=== PATIENT | male | born 1985 | race Caucasian/White ===

== ENCOUNTER 2017-06-17 00:42 | Emergency (ER) | payer BC ==
[2017-06-17] MEDS ORDERED: LIDOCAINE 2% VISCOUS SOLN 20 ML UDCUP PO ONE (02:26)
--- NOTE | 2017-06-17 02:32 | ER Document Report ---
HPI - HPI Pain Level: 5 Notes: Patient is a 31-year-old male with no significant past medical history presents the ED complaining of right upper molar pain to #2 over the last couple days. Patient states that he has noticed a little bit of swelling in the area and the pain is described as sharp that radiates around into his right jaw. He has been using ibuprofen with minimal relief. Patient states that he is here visiting and they are looking into calling a dentist tomorrow morning. Patient denies any drug allergies, smoking, or illicit drug use. Patient states that he has not had any difficulties eating or drinking mechanically. Denies any headache, fever, neck pain/stiffness, URI, sore throat, chest pain, palpitations , syncope, cough, shortness of breath, wheeze, dyspnea, abdominal pain, nausea/ vomiting/diarrhea, dysuria, hematuria, or rash. - ROS Notes: REVIEW OF SYSTEMS: CONSTITUTIONAL : Denies fever, chills, or sweats. Denies recent illness. EENT: see hpi. No eye complaints. CARDIOVASCULAR: Denies chest pain. Denies palpitations or racing or irregular heart beat. Denies ankle edema. RESPIRATORY: Denies cough, cold, or chest congestion. Denies shortness of breath, difficulty breathing, or wheezing. GASTROINTESTINAL: Denies abdominal pain or distention. Denies nausea, vomiting , or diarrhea. Denies blood in vomitus, stools, or per rectum. Denies black, tarry stools. Denies constipation. GENITOURINARY: Denies difficulty urinating, painful urination, burning, frequency, blood in urine, or discharge. MUSCULOSKELETAL: Denies back or neck pain or stiffness. Denies joint pain or swelling. SKIN: Denies rash, lesions or sores. NEUROLOGICAL: Denies confusion or altered mental status. Denies passing out or loss of consciousness. Denies dizziness or lightheadedness. Denies headache. Denies weakness or paralysis or loss of use of either side. Denies problems with gait or speech. Denies sensory loss, numbness, or tingling. ALL OTHER SYSTEMS REVIEWED AND NEGATIVE. Dictation was performed using hoozin voice recognition software - DERM Skin Color: Normal, [place] Past Medical History - Social History Smoking Status: Never Smoker Family History: Reviewed & Not Pertinent Renal/ Medical History: Denies: Hx Peritoneal Dialysis Vertical Provider Document - CONSTITUTIONAL Agree With Documented VS: Yes Notes: PHYSICAL EXAMINATION: GENERAL: Well-appearing, well-nourished and in no acute distress. HEAD: Atraumatic, normocephalic. EYES: Pupils equal round and reactive to light, extraocular movements intact, sclera anicteric, conjunctiva are normal. ENT: EAC clear b/l. TM's intact b/l without erythema, fluid, or perforation. Nares patent and without discharge. oropharynx clear without exudates. No tonsilar hypertrophy or erythema. Moist mucous membranes. No sinus tenderness. Uvula midline. No palatine shift. No tongue protrusion. No facial swelling. Mouth: poor dentition throughout. + mild gingivitis to #2 without obvious abscess or discharge. + tenderness. No sign of Jamie's. NECK: Normal range of motion, supple without lymphadenopathy. No rigidity/ meningismus. LUNGS: Breath sounds clear to auscultation bilaterally and equal. No wheezes rales or rhonchi. HEART: Regular rate and rhythm without murmurs, rubs, gallops. NEUROLOGICAL: Cranial nerves grossly intact. Normal speech, normal gait. Normal sensory, motor exams PSYCH: Normal mood, normal affect. SKIN: Warm, Dry, normal turgor, no rashes or lesions noted. - INFECTION CONTROL TRAVEL OUTSIDE OF THE [place] IN LAST 30 DAYS: No - RESPIRATORY O2 Sat by Pulse Oximetry: 98 Course - Re-evaluation Re-evalutation: 06/17/17 02:30 Patient is an afebrile, well-hydrated, 31-year-old male who presents the ED with right upper molar dental pain to #2, suspect infection versus nerve root etiology. Vitals are stable. PE otherwise unremarkable at this time. I will cover him with clindamycin 3 times daily 10 days along with viscous lidocaine to use as directed. Low suspicion for any meningitis, sepsis, peritonsillar/ pharyngeal abscess, respiratory compromise, Jamie's, temporal arteritis, or other emergent systemic condition at this time. Patient is aware this condition can change from initial presentation and he needs to monitor symptoms closely. Conservative measures otherwise for symptoms. Call to schedule an appointment with a dentist for further evaluation and management. Recheck with your PCM this week as well. Return to the ED with any worsening/concerning symptoms otherwise as reviewed in discharge. Patient is in agreement. - Vital Signs Vital signs: Temp Pulse Resp BP Pulse Ox 97.4 F 62 16 143/94 H 98 06/17/17 00:58 06/17/17 00:58 06/17/17 00:58 06/17/17 00:58 06/17/17 00:58 Discharge - Discharge Clinical Impression: Toothache Condition: Stable Disposition: HOME, SELF-CARE Instructions: Toothache ([facility]), Clindamycin ([facility]), Dentist, Dental Infection or Abscess ([facility]) Additional Instructions: [place] and floss twice daily Maintain fluid intake Take antibiotics as directed Mouthwash, salt water gargles, peroxide rinse as needed Tylenol/ibuprofen as needed Recheck with PCM this week Call today/tomorrow and schedule an appointment with your dentist for further evaluation Return to the ED with any worsening symptoms and/or development of fever, headache, facial swelling, swelling of lips/tongue/throat, trouble swallowing, drooling, hoarseness, neck pain/stiffness, chest pain, palpitations, syncope, shortness of breath, trouble breathing, abdominal pain, n/v/d, numbness/tingling , or other worsening symptoms that are concerning to you. Prescriptions: Clindamycin HCl [Cleocin 300 mg Capsule] 300 mg PO TID #30 capsule Forms: Elevated Blood Pressure Referrals: DENTISTRY [Provider Group] - Follow up as needed
[2017-06-17 02:57] VITALS: BP 142/98
== END 2017-06-17 02:56 | disposition home or self-care (01) ==
LOC: ER 00:42
DX: K08.89 Other specified disorders of teeth and supporting structures (principal)
CPT/HCPCS: 99282; J3490